=== PATIENT | male | born 1980 | race Caucasian/White ===

== ENCOUNTER 2019-04-17 11:54 | Emergency (ER) | payer BC ==
--- NOTE | 2019-04-17 13:22 | ER ---
Nurse's Notes [facility] Name: Rodney Lazo Age: 39 yrs Sex: Male : 1980 Arrival Date: 04/17/2019 Time: 12:00 Bed 28 Private MD: Diagnosis: Dysuria Presentation: 04/16 12:07 Chief complaint: Patient states: "my girlfriend was told that she has chlamydia and aa5 gonorrhea so I just need treatment". Coronavirus screen: The patient has NOT traveled to a country currently being monitored by the [facility] within the last 14 days. The patient has NOT had contact with any known and/or suspected case of coronavirus. Ebola Screen: Patient negative for fever greater than or equal to 101.5 degrees Fahrenheit, and additional compatible Ebola Virus Disease symptoms. Initial Sepsis Screen: Does the patient meet any 2 criteria? No. Patient's initial sepsis screen is negative. Does the patient have a suspected source of infection? No. Patient's initial sepsis screen is negative. Risk Assessment: Do you want to hurt yourself or someone else? Patient reports no desire to harm self or others. 12:07 Method Of Arrival: Ambulatory aa5 12:07 Acuity: SHANNAN 4 aa5 Historical: - Allergies: 12:08 PENICILLINS; aa5 - PMHx: 12:08 None; aa5 - PSHx: 12:08 None; aa5 - Immunization history:: Adult Immunizations unknown. - Social history:: Smoking status: Patient reports the use of cigarette tobacco products, smokes one pack cigarettes per day. Screenin:26 Abuse screen: Denies threats or abuse. Denies injuries from another. Nutritional iw screening: No deficits noted. Tuberculosis screening: No symptoms or risk factors identified. Fall Risk None identified. Assessment: 12:25 General: Appears in no apparent distress. comfortable, Behavior is calm, cooperative. iw Pain: Denies pain. Neuro: No deficits noted. Level of Consciousness is awake, alert, obeys commands, Oriented to person, place, time, situation, Moves all extremities. Full function. Cardiovascular: Patient's skin is warm and dry. : Denies burning with urination, discharge. Musculoskeletal: Range of motion: intact in all extremities. Vital Signs: 12:07 BP 131 / 82; Pulse 90; Resp 18 S; Temp 98.1(TE); Pulse Ox 99% on R/A; Weight 92.99 kg aa5 (R); Height 6 ft. 1 in. (185.42 cm) (R); Pain 0/10; 12:53 BP 125 / 81; Pulse 86; Resp 17; Temp 98.3(O); Pulse Ox 100% on R/A; 5 12:07 Body Mass Index 27.05 (92.99 kg, 185.42 cm) [facility] ED Course: 12:00 Patient arrived in ED. ag5 12:06 Arm band placed on. aa5 12:08 Triage completed. aa 12:20 Mary Ellen Lou, RN is Primary Nurse. vc 12:26 Patient has correct armband on for positive identification. iw 12:26 No provider procedures requiring assistance completed. Patient admitted, IV remains in iw place. 12:39 Lowell Scott MD is Attending Physician. [facility] 12:57 Pulse ox on. NIBP on. [facility] Administered Medications: 14:00 Drug: Rocephin (cefTRIAXone) 1 grams Route: IM; Site: left ventrogluteal; ls4 15:00 Follow up: Response: No adverse reaction vc 14:00 Drug: Doxycycline 200 mg Route: PO; ls4 15:00 Follow up: Response: No adverse reaction vc 14:00 Drug: Zithromax 1 grams Route: PO; ls4 15:53 Follow up: Response: No adverse reaction vc Outcome: 13:21 Discharge ordered by . allie 14:16 Patient left the ED. ls4 Signatures: Lowell Scott MD MD cha Williams, Irene, RN RN Keke Lopez RN RN 5 Kathie Billingsley [facility] Akila Stone RN RN 4 Chava Arredondo [facility] Mary Ellen Lou RN RN vc
--- NOTE | 2019-04-17 13:22 | EDPHYS ---
Physician Documentation [facility] Name: Rodney Lazo Age: 39 yrs Sex: Male : 1980 Arrival Date: 04/17/2019 Time: 12:00 Bed 28 Private MD: MARANDA Physician Lowell Scott HPI: 04/16 13:17 This 39 yrs old Male presents to ER via Ambulatory with complaints of Other. allie 13:17 The patient presents with urinary symptoms, dysuria. Onset: The symptoms/episode allie began/occurred at an unknown time. Modifying factors: The symptoms are alleviated by nothing, the symptoms are aggravated by nothing. Associated signs and symptoms: The patient has no apparent associated signs or symptoms. Severity of symptoms: At their worst the symptoms were mild, in the emergency department the symptoms are unchanged. Historical: - Allergies: 12:08 PENICILLINS; aa5 - PMHx: 12:08 None; aa5 - PSHx: 12:08 None; aa5 - Immunization history:: Adult Immunizations unknown. - Social history:: Smoking status: Patient reports the use of cigarette tobacco products, smokes one pack cigarettes per day. ROS: 13:18 Constitutional: Negative for fever, chills, and weight loss, Eyes: Negative for injury, allie pain, redness, and discharge, ENT: Negative for injury, pain, and discharge, Neck: Negative for injury, pain, and swelling, Cardiovascular: Negative for chest pain, palpitations, and edema, Respiratory: Negative for shortness of breath, cough, wheezing, and pleuritic chest pain, Abdomen/GI: Negative for abdominal pain, nausea, vomiting, diarrhea, and constipation, Back: Negative for injury and pain, MS/Extremity: Negative for injury and deformity, Skin: Negative for injury, rash, and discoloration, Neuro: Negative for headache, weakness, numbness, tingling, and seizure, Psych: Negative for depression, anxiety, suicide ideation, homicidal ideation, and hallucinations, Allergy/Immunology: Negative for hives, rash, and allergies, Endocrine: Negative for neck swelling, polydipsia, polyuria, polyphagia, and marked weight changes, Hematologic/Lymphatic: Negative for swollen nodes, abnormal bleeding, and unusual bruising. 13:18 : Positive for no symptoms. Exam: 13:18 Constitutional: This is a well developed, well nourished patient who is awake, alert, allie and in no acute distress. Head/Face: Normocephalic, atraumatic. Eyes: Pupils equal round and reactive to light, extra-ocular motions intact. Lids and lashes normal. Conjunctiva and sclera are non-icteric and not injected. Cornea within normal limits. Periorbital areas with no swelling, redness, or edema. ENT: Nares patent. No nasal discharge, no septal abnormalities noted. Tympanic membranes are normal and external auditory canals are clear. Oropharynx with no redness, swelling, or masses, exudates, or evidence of obstruction, uvula midline. Mucous membranes moist. Neck: Trachea midline, no thyromegaly or masses palpated, and no cervical lymphadenopathy. Supple, full range of motion without nuchal rigidity, or vertebral point tenderness. No Meningismus. Chest/axilla: Normal chest wall appearance and motion. Nontender with no deformity. No lesions are appreciated. Cardiovascular: Regular rate and rhythm with a normal S1 and S2. No gallops, murmurs, or rubs. Normal PMI, no JVD. No pulse deficits. Respiratory: Lungs have equal breath sounds bilaterally, clear to auscultation and percussion. No rales, rhonchi or wheezes noted. No increased work of breathing, no retractions or nasal flaring. Abdomen/GI: Soft, non-tender, with normal bowel sounds. No distension or tympany. No guarding or rebound. No evidence of tenderness throughout. Back: No spinal tenderness. No costovertebral tenderness. Full range of motion. Male : Normal genitalia with no discharge or lesions. Skin: Warm, dry with normal turgor. Normal color with no rashes, no lesions, and no evidence of cellulitis. MS/ Extremity: Pulses equal, no cyanosis. Neurovascular intact. Full, normal range of motion. Neuro: Awake and alert, GCS 15, oriented to person, place, time, and situation. Cranial nerves II-XII grossly intact. Motor strength 5/5 in all extremities. Sensory grossly intact. Cerebellar exam normal. Normal gait. Psych: Awake, alert, with orientation to person, place and time. Behavior, mood, and affect are within normal limits. Vital Signs: 12:07 BP 131 / 82; Pulse 90; Resp 18 S; Temp 98.1(TE); Pulse Ox 99% on R/A; Weight 92.99 kg aa5 (R); Height 6 ft. 1 in. (185.42 cm) (R); Pain 0/10; 12:53 BP 125 / 81; Pulse 86; Resp 17; Temp 98.3(O); Pulse Ox 100% on R/A; mh5 12:07 Body Mass Index 27.05 (92.99 kg, 185.42 cm) [facility] MDM: 12:39 Patient medically screened. allie Administered Medications: 14:00 Drug: Rocephin (cefTRIAXone) 1 grams Route: IM; Site: left ventrogluteal; ls4 15:00 Follow up: Response: No adverse reaction vc 14:00 Drug: Doxycycline 200 mg Route: PO; ls4 15:00 Follow up: Response: No adverse reaction vc 14:00 Drug: Zithromax 1 grams Route: PO; ls4 15:53 Follow up: Response: No adverse reaction vc Disposition: 04/17/19 13:21 Discharged to Home. Impression: Dysuria. - Condition is Stable. - Discharge Instructions: Dysuria, Sexually Transmitted Disease, [id number]. - Prescriptions for Doxycycline Hyclate 100 mg Oral Tablet - take 1 tablet by ORAL route every 12 hours; 20 tablet. - Medication Reconciliation Form, Thank You Letter, Antibiotic Education, Prescription Opioid Use form. - Follow up: Private Physician; When: 2 - 3 days; Reason: Recheck today's complaints, Continuance of care, Re-evaluation by your physician. - Problem is new. - Symptoms have improved. Signatures: Lowell Scott MD MD allie Keke Lopez, RN RN aa5 Akila Stone RN RN ls4 Mary Ellen Lou RN Corrections: (The following items were deleted from the chart) 14:16 13:21 04/17/2019 13:21 Discharged to Home. Impression: Dysuria. Condition is Stable. ls4 Forms are Medication Reconciliation Form, Thank You Letter, Antibiotic Education, Prescription Opioid Use. Follow up: Private Physician; When: 2 - 3 days; Reason: Recheck today's complaints, Continuance of care, Re-evaluation by your physician. Problem is new. Symptoms have improved. allie
[2019-04-17] MEDS ORDERED: CEFTRIAXONE 1000 MG/VIAL ONE (13:49)
[2019-04-17] MEDS ORDERED: LIDOCAINE 1% MPF 5 ML VIAL ONE (13:49)
[2019-04-17] MEDS ORDERED: DOXYCYCLINE 100 MG CAP PO ONE (13:50)
[2019-04-17] MEDS ORDERED: AZITHROMYCIN 250 MG TAB ONE (13:50)
[2019-04-17 14:49] VITALS: BP 125/81; TEMP 98.3; O2SAT 100
== END 2019-04-17 14:16 | disposition home or self-care (01) ==
LOC: ER 11:54
DX: R30.0 Dysuria (principal); Z88.0 Allergy status to penicillin; F17.210 Nicotine dependence, cigarettes, uncomplicated
CPT/HCPCS: 96372; 99283

== ENCOUNTER 2019-08-21 17:19 | Emergency (ER) | payer BC ==
--- NOTE | 2019-08-21 18:32 | RAD REPORT ---
EXAM DESCRIPTION: RAD - Ankle Right 3 View - 08/21/2019 6:20 pm CLINICAL HISTORY: Right ankle pain FINDINGS: No fracture or dislocation is seen.
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
[2019-08-21 19:28] VITALS: TEMP 97.7; O2SAT 99
[2019-08-21 19:29] VITALS: BP 119/72
== END 2019-08-21 19:01 | disposition home or self-care (01) ==
LOC: ER 17:19
DX: S90.31XA Contusion of right foot, initial encounter (principal); W23.0XXA Caught, crushed, jammed, or pinched between moving objects, initial encounter; Y93.89 Activity, other specified; Y92.9 Unspecified place or not applicable; Y99.0 Civilian activity done for income or pay; L03.116 Cellulitis of left lower limb; Z88.0 Allergy status to penicillin; F17.210 Nicotine dependence, cigarettes, uncomplicated
CPT/HCPCS: 99283